=== PATIENT | male | born 1960 | race Caucasian/White ===

== ENCOUNTER 2016-11-24 10:49 | Day surgery (SDC) | payer OTHER ==
[~2016-11-24 10:49] MED LIST: Buffered Lidocaine 0.9% SYRIN* 5 ML/SYR SYRINGE INTRADERM ONE; Famotidine IV* 10 MG/ML 2 ML (20 mg) IV ONE; Metoclopramide TAB* 10 MG PO ONE
[2016-11-24] MEDS ORDERED: KETAMINE HCL* 50 MG/ML 10 ML VIAL ONE (11:02)
[2016-11-24] MEDS ORDERED: Midazolam* 1 MG/ML 5 ML VIAL (5 MG) ONE (11:02)
[2016-11-24] MEDS ORDERED: Ondansetron INJ* 2 MG/ML VIAL ONE (11:02)
[2016-11-24] MEDS ORDERED: Lidocaine 2% PF * 5 ML VIAL ONE (11:02)
[2016-11-24] MEDS ORDERED: Dexamethasone IV* 4 MG/ML 1 ML (4 MG) ONE (11:02)
[2016-11-24] MEDS ORDERED: Ketorolac INJ* 30 MG/ML 1 ML VIAL ONE (11:02)
[2016-11-24] MEDS ORDERED: Propofol* 10 MG/ML 20 ML BTL IV PUSH ONE ×2 (11:02→12:08)
[2016-11-24] MEDS ORDERED: fentaNYL* 50 MCG/ML 2 ML VIAL (100 MCG VIAL) ONE (11:02)
[2016-11-24] MEDS ORDERED: Famotidine IV* 10 MG/ML 2 ML (20 mg) ONE (11:04)
[2016-11-24] MEDS ORDERED: Metoclopramide TAB* 10 MG ONE (11:04)
[2016-11-24] MEDS ORDERED: Buffered Lidocaine 0.9% SYRIN* 5 ML/SYR SYRINGE ONE (11:05)
[2016-11-24] MEDS ORDERED: ceFAZolin 2 GM PREMIX(*) 2 GM/50 ML BAG IVPB ONE (11:05)
[2016-11-24] MEDS ORDERED: Bupivacaine 0.5% W/EPI SDV* 10 ML VIAL INJ ONE (11:10)
[2016-11-24] MEDS ORDERED: Lidocaine 1% INJ* 10 MG/ML 30 ML SDV ONE (11:11)
[2016-11-24] MEDS ORDERED: oxyCODONE/Acetamin 5/325 MG* TAB PO PRN ×2 (11:36→12:46)
[2016-11-24] MEDS ORDERED: Ondansetron INJ* 2 MG/ML VIAL IV PRN (11:36)
[2016-11-24] MEDS ORDERED: fentaNYL* 50 MCG/ML 2 ML VIAL (100 MCG VIAL) IV PRN (11:36)
[2016-11-24] MEDS ORDERED: Midazolam* 1 MG/ML 2 ML VIAL (2 MG) ONE (11:47)
[2016-11-24 13:16] VITALS: BP 103/74
--- NOTE | 2016-11-25 05:13 | OP ---
CC: Dr. Edil Carrera * DATE OF OPERATION: 11/24/16 - [facility] DATE OF : 58 SURGEON: Sixto Thompson MD HOOK TENDER: KENNEDY Gonzalez ANESTHESIOLOGIST: Dr. Ruiz. ANESTHESIA: LMAC. PRE-OP DIAGNOSIS: Right inguinal hernia. POST-OP DIAGNOSIS: Right inguinal hernia. OPERATIVE PROCEDURE: Open right inguinal hernia repair with mesh. DESCRIPTION OF PROCEDURE: The patient was supine on the operative table after adequate intravenous sedation, compression stockings, Gabriella Hugger warmer, and intravenous antibiotics. The right groin was clipped and prepped with antiseptic, draped in a sterile fashion. Local infiltrative anesthesia was administered, approximately 7 cm incision was created. Dissection was carried down to the external oblique, which was opened in the direction of its fibers. Cord structures were encircled with a [place] drain, tented upward. There was an obvious indirect space hernia, which was dissected free and reduced and a cone mesh plug was placed into the internal ring and sutured there using 2-0 Polysorb. It was sutured at the transversus abdominis and at the inguinal ligament. A second piece of mesh was placed in the inguinal floor, sutured at the tubercle. Tails were split, brought around the cord structures and tacked down laterally. The external oblique was closed over top with 2-0 Polysorb, Dwaine's with 3-0 Polysorb, skin with 4-0 Surgipro followed by a sterile dressing. He tolerated the procedure well and was awakened and brought to Recovery in good condition. No complications. No drains. No pathologic specimens. Sponge and instrument counts correct. ESTIMATED BLOOD LOSS: 10 mL. [id number]/[facility] #: [id number] [facility]
== END 2016-11-24 13:32 | disposition home or self-care (01) ==
LOC: OR 10:49
PROVIDERS: ATTEND Surgery
DX: K40.90 Unilateral inguinal hernia, without obstruction or gangrene, not specified as recurrent (principal); I10 Essential (primary) hypertension; I49.3 Ventricular premature depolarization; E11.9 Type 2 diabetes mellitus without complications; Z79.84 Long term (current) use of oral hypoglycemic drugs
CPT/HCPCS: A9270-GY; C1781; J0690; J1100; J1885; J2001; J2250; J2405; J2704; J3010